=== PATIENT | male | born 1955 | race Caucasian/White ===

== ENCOUNTER 2020-06-16 13:30 | Outpatient (CLI) | payer OTHER, SELFPAY ==
--- NOTE | ~2020-06-16 | XR_ITS ---
EXAMINATION: XR abdomen/kub 1V EXAM DATE: 06/16/2020 13:53 INDICATION: Gross hematuria. TECHNIQUE: Frontal projection(s) of the abdomen for interpretation. There is no prior study for bharati hays. FINDINGS: There is mild to moderate lumbar levoscoliosis. There are gallstones. No calcifications were identified on CT abdomen pelvis obtained at same time. Nonobstructive bowel gas pattern with ex pected amount of colonic stool. Splenic granulomas. Right hip replacement. Moderate lumbar spondylosi s. IMPRESSION: 1. Cholelithiasis. 2. Lumbar levoscoliosis and moderate spondylosis. Reviewed, dictated and finalized at location A.
--- NOTE | ~2020-06-16 | CT_ITS ---
EXAMINATION: CT abdomen pelvis wo/w con EXAM DATE: 06/16/2020 14:21 INDICATION: Gross hematuria. TECHNIQUE: Spiral CT of the abdomen and pelvis was performed without contrast. The patient was then injected with small bolus intravenous Omnipaque 350, followed by delay of approximately 10 minutes to allow collecting system to opacify. A post contrast scan abdomen and pelvis was performed during inj ection of remaining contrast. A total of 130 cc intravenous contrast was administered. The dose-ralph th product (DLP) for this examination was 3084.59 mGy-cm. The exposure was tailored according to pat ient size (auto mA exposure control), and iterative reconstruction (ASIR) was used as additional dose reduction technique. There is no prior study for comparison. FINDINGS: There is no hydronephrosis or nephrolithiasis. Left renal peripelvic cyst. The kidneys en sofía symmetrically. There are no suspicious renal lesions. The calyces and opacified portions of u reters are unremarkable, without filling defects or focal suspicious strictures. The bladder is unre markable. The prostate is unremarkable. There is hepatic steatosis without suspicious focal lesion identified. Spleen, adrenal glands, pancre as are unremarkable. There are gallstones within an otherwise unremarkable gallbladder. No evidence of obstructive biliary disease. There is no retroperitoneal or pelvic lymphadenopathy. There is m oderate scattered arteriosclerotic disease. The appendix is normal. The stomach and small bowel are unremarkable. There is expected amount of c olonic stool. No free intraperitoneal gas. The heart is normal in size. There are no pericardial or pleural effusions. The lung bases are unremarkable. Sternotomy wires. Mild lumbar levoscoliosis. There is right hip arthroplasty. IMPRESSION: 1. No suspicious genitourinary findings. 2. Hepatic steatosis. 3. Cholelithiasis. Reviewed, dictated and finalized at location A.
[2020-06-16 14:02] LABS: Estimated Glomerular Filt Rate > 60
== END 2020-06-16 13:31 | disposition home or self-care (01) ==
LOC: ANHIMG 13:36
PROVIDERS: PCP Internal Medicine Cardiovascular Disease; Visit Provider Urology
DX: R31.0 Gross hematuria (principal); K80.20 Calculus of gallbladder without cholecystitis without obstruction; K76.0 Fatty (change of) liver, not elsewhere classified
CPT/HCPCS: 74018; 74178; Q9967

== ENCOUNTER 2020-06-24 07:46 | Outpatient (CLI) | payer OTHER, MEDICARE, SELFPAY ==
[2020-06-24 08:23] LABS: Anion Gap 9 mmol/L (8-16); Blood Urea Nitrogen 20 mg/dL (9-20); Calcium 9.6 mg/dL (8.4-10.2); Carbon Dioxide 30 mmol/L (22-30); Chloride 103 mmol/L (98-107); Estimated Glomerular Filt Rate > 60; Glucose 90 mg/dL (75-110); Potassium 4.5 mmol/L (3.4-5.0); Sodium 142 mmol/L (137-145)
== END 2020-06-24 07:47 | disposition home or self-care (01) ==
LOC: ANHSURGERY 07:51
PROVIDERS: Anesthesiology; PCP Internal Medicine Cardiovascular Disease; Visit Provider Urology
DX: C67.4 Malignant neoplasm of posterior wall of bladder (principal); Z79.899 Other long term (current) drug therapy
CPT/HCPCS: 36415; 80048; 87077; 87086; 87088; 87186

== ENCOUNTER 2020-06-29 00:43 | Outpatient (CLI) | payer OTHER, MEDICARE, SELFPAY ==
[2020-06-29 16:30] LABS: SARS-CoV-2 RNA PCR Negative
== END 2020-06-29 00:44 | disposition home or self-care (01) ==
LOC: ANHCOVIDDT 00:43
PROVIDERS: PCP Internal Medicine Cardiovascular Disease; Visit Provider Urology
DX: Z01.812 Encounter for preprocedural laboratory examination (principal); Z20.828 Contact with and (suspected) exposure to other viral communicable diseases
CPT/HCPCS: 87635; C9803; U0003

== ENCOUNTER 2020-07-01 00:55 | Day surgery (SDC) | payer OTHER, MEDICARE, SELFPAY ==
[2020-06-22 10:28] VITALS: BMI 46.1
[2020-07-01] VITALS (10 sets, daily range): BP systolic 89–169; BP diastolic 46–77; PULSE 50–65; RESP 11–20; TEMP 36.4; O2SAT 98–100
[2020-07-01] MEDS: LACTATED RINGERS 1,000 ML 30 ML IV CONT ×2 (11:59→15:00)
--- NOTE | 2020-07-01 12:16 | WPDHPUPDATE1 ---
History and Physical Update Update Date/Time: 07/01/20 12:16 History and Physical has been reviewed, including an updated exam of the patient. There are NO changes in the patient's condition. Risks, benefits, and alternatives have been discussed and questions answered. Patient agrees to proceed with procedure.
[2020-07-01] MEDS: levoFLOXacin 500 MG/D5W 100 ML 500 MG/100 ML BAG 100 MG IVPB (12:33)
--- NOTE | 2020-07-01 12:47 | WPDANESEPPF ---
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 Patient Data Age: 65 Gender: M Height: 5 ft 11 in Weight: 151.6 kg Last Vital Signs Temp 97.5 F L 07/01/20 11:25 Pulse 55 L 07/01/20 11:25 Resp 20 07/01/20 11:25 BP 134/70 07/01/20 11:25 Pulse Ox 99 07/01/20 11:25 Allergies Allergy/AdvReac Type Severity Reaction Status Date / Time No Known Allergies Allergy Verified 07/01/20 11:29 Home Medications Medication Instructions Recorded Confirmed Type allopurinol 300 mg PO DAILY 06/22/20 07/01/20 History amiodarone 200 mg PO BID 06/22/20 07/01/20 History apixaban [Eliquis] 5 mg PO BID 06/22/20 07/01/20 History aspirin 81 mg PO DAILY 06/22/20 07/01/20 History carvedilol 3.125 mg PO BID 06/22/20 07/01/20 History duloxetine 30 mg PO QAM 06/22/20 07/01/20 History finasteride 5 mg PO DAILY 06/22/20 07/01/20 History magnesium oxide 400 mg PO BID 06/22/20 07/01/20 History simvastatin 40 mg PO QAM 06/22/20 07/01/20 History tamsulosin 0.4 mg PO DAILY 06/22/20 07/01/20 History valsartan-hydrochlorothiazide 1 tablet PO QAM 06/22/20 07/01/20 History Patient hx anesthesia problems: none Family hx anesthesia problems: none PMFSH Past Medical History Medical History (Updated 07/01/20 @ 12:47 by Campos Castillo MD) Atrial fibrillation Bladder tumor Hyperlipidemia Hypertension AIRAM (obstructive sleep apnea) Surgical History Surgical History (Updated 07/01/20 @ 12:47 by Campos Castillo MD) S/P CABG x 4 Social History Social History Smoking packs per day: 1 Smoking cigarettes per day: 20.0 Years smoked: 23 Smoking pack-years: 23.00 Smoking status: Former smoker Smoking end date: 03/04/95 Alcohol intake: former Alcohol use details: DRANK SOCIALLY Substance use: never Living arrangements: alone Spiritual care concerns: No Anes - Eval Final PreProcedure Day of Procedure 07/01/20 12:47 Patient weight: morbidly obese Heart: irregular rhythm Lungs: clear to auscultation Airway: Mallampati scale class III Neurological: alert and oriented Last oral intake: >/= 8 hours ASA classification: IV Emergent: no Anesthetic plan: proceed Anesthesia type and monitoring: general LMA and standard monitoring Informed Consent: The patient's anesthetic plan and its attendant risks and benefits were discussed with the patient/family/POA. Questions were solicited and answers provided to the satisfaction of the patient/family/POA.
--- NOTE | 2020-07-01 14:04 | PM.PROC ---
Procedure Note - Detailed Date of procedure: 07/01/20 Pre-op diagnosis: CA posterior wall urinary bladder Post-op diagnosis: same Procedure performed: 1. Cystoscopy 2. Transurethrally resection of bladder tumor - 2cm Description of procedure: Informed consent was obtained. Patient taken the operating. He is given preoperative IV antibiotics in the holding area 1hour prior to his surgical intervention. He was induced with anesthesia. He was prepped and draped. A 22 F rigid cystoscope was inserted through the urethra into the bladder. The patient did have bilobar prostatic hyperplasia. Inspection of the bladder revealed a solitary 2cm bladder tumor lateral to the left ureteral orifice with some adjacent inflammatory/tumor tissue. There were no other lesions present. Using the resectoscope we removed the tumor. The base of tumor was biopsied with a flexible biopsy forceps. Cauterization was performed of the resection base. There was good hemostasis. A Maria catheter was inserted. The patient was taken to the PACU in stable condition Anesthesia: GLMA Surgeon: Nicole Luciano MD Drains: No Packing: No Pathology: yes Complications: No immediate complications Condition: stable Disposition: PACU
--- NOTE | 2020-07-01 14:17 | PM.PROC ---
Procedure Note - Detailed Date of procedure: 07/01/20 Pre-op diagnosis: CA posterior wall urinary bladder Post-op diagnosis: same Procedure performed: Postoperative Instillation of mitomycin Description of procedure: The patient is status post transurethral resection of bladder tumor. The patient is in recovery with clear urine. There was no bladder perforation at the time of his resection. We elected to place mitomycin C in the recovery room. The patient's bladder was emptied through the catheter. 40mL of mitomycin-C was instilled into the bladder. The catheter was clamped. The patient will be left with the mitomycin-C in his bladder for 1hour and then be sent home after he voids Anesthesia: none Surgeon: Nicole Luciano MD Drains: No Packing: No Pathology: none sent Complications: No immediate complications Condition: stable Disposition: PACU
== END 2020-07-01 16:45 | disposition home or self-care (01) ==
PROVIDERS: PCP Internal Medicine Cardiovascular Disease; Visit Provider Urology
PROC: 0TBB8ZZ Excision of Bladder, Via Natural or Artificial Opening Endoscopic (ICD-10-PCS; CPT 52234; principal; 2020-07-01 13:00)
DX: C67.4 Malignant neoplasm of posterior wall of bladder (principal); I48.91 Unspecified atrial fibrillation; I10 Essential (primary) hypertension; E78.5 Hyperlipidemia, unspecified; G47.33 Obstructive sleep apnea (adult) (pediatric); Z79.01 Long term (current) use of anticoagulants; Z79.82 Long term (current) use of aspirin; Z95.1 Presence of aortocoronary bypass graft; Z87.891 Personal history of nicotine dependence; E66.01 Morbid (severe) obesity due to excess calories; Z68.42 Body mass index [BMI] 45.0-49.9, adult
CPT/HCPCS: 52234; 51720; 88305; A9270; J1100; J1956; J2370; J2405; J2704; J3010; J7120; J9280

== ENCOUNTER 2020-10-26 08:23 | Outpatient (CLI) | payer OTHER, MEDICARE, SELFPAY ==
--- NOTE | 2020-10-27 15:53 | P.PCNPFT_ITS ---
PFT Interpretation This is a pulmonary function test with spirometry, plethysmography and diffusing capacity. The test was performed and results interpreted in accordance with the 2019 and 2005 ATS/ERS Task Force guidelines respectively using the Dmitry/Laquita reference equations. Findings: Spirometry: The contour of the inspiratory and expiratory flow tracing are no rmal. The FVC is 4.03 L, 87% predicted. The FEV1 is 2.86 L, 90% predicted. The FEV1: FVC ratio 71%. Plethysmography: The total lung capacity is 5.03 L, 74% predicted. The functional residual capacity is 1.57 L, 55% predicted. The residual volume is 1.00 L, 39% predicted. Diffusing capacity: The absolute diffusion capacity is 22.6, 72% predicted. The diffusing capacity corrected for alveolar volume is 4.29, 116% predicted. Impression: There is a mild restrictive ventilatory abnormality with a normal FEV1. The spirometry is normal without evidence of an obstructive abnormality. The absolute diffusing capacity is mildly decreased and normalizes when corrected for alveolar volume. There are no prior studies for comparison
== END 2020-10-26 08:24 | disposition home or self-care (01) ==
PROVIDERS: PCP Family Medicine; Visit Provider Internal Medicine Cardiovascular Disease
DX: Z79.899 Other long term (current) drug therapy (principal); R94.2 Abnormal results of pulmonary function studies
CPT/HCPCS: 94375; 94726; 94729

== ENCOUNTER 2020-12-17 07:55 | Outpatient (CLI) | payer OTHER, MEDICARE, SELFPAY ==
--- NOTE | ~2020-12-17 | XR_ITS ---
EXAMINATION: XR chest 2V DATE: 12/17/2020 08:19 INDICATION: Long-term current use of amiodarone TECHNIQUE: Frontal and lateral views of the chest are obtained COMPARISON: 04/21/2007 FINDINGS: Cardiomegaly is noted. The lungs are free of acute opacities. There is no pleural effusion or pneumothorax. Median sternotomy wires and mediastinal surgical clips are seen, likely from prior c oronary artery bypass grafting. A small cardiac device is implanted in anterior subcutaneous tissues of the left chest wall. There is moderate thoracic spondylosis. IMPRESSION: 1. Cardiomegaly. Reviewed, dictated and finalized at location B. IMPRESSION: 1. Cardiomegaly.
== END 2020-12-17 07:56 | disposition home or self-care (01) ==
LOC: ANHIMG 08:00
PROVIDERS: PCP Family Medicine; Visit Provider Internal Medicine Cardiovascular Disease
DX: Z51.81 Encounter for therapeutic drug level monitoring (principal); Z79.899 Other long term (current) drug therapy; I51.7 Cardiomegaly
CPT/HCPCS: 71046

== ENCOUNTER 2021-04-23 12:14 | Outpatient (CLI) | payer OTHER, MEDICARE, SELFPAY | END 2021-04-23 12:15 | disposition home or self-care (01) | LOC: ANHLAB 12:17 | PROVIDERS: PCP Family Medicine; Visit Provider Internal Medicine Cardiovascular Disease | DX: Z79.899 Other long term (current) drug therapy (principal) | CPT/HCPCS: 36415; 84443 ==

== ENCOUNTER 2021-10-29 10:50 | Outpatient (CLI) | payer MEDICARE, SELFPAY ==
--- NOTE | ~2021-10-29 | XR_ITS ---
EXAMINATION: XR chest 2V 10/29/2021 11:23 INDICATION: Long-term current use of amiodarone PROCEDURE: 2 view chest COMPARISON: Comparison to multiple prior studies sequentially, with oldest reviewed study dated 11/2005. FINDINGS: The lungs are clear. The cardiomediastinal silhouette is within normal limits. There are no pleural effusions. There is no pneumothorax suspected. Status post median sternotomy for CABG. T here is a small implantable cardiac device overlying the left chest. IMPRESSION: 1: NO ACUTE CARDIOPULMONARY DISEASE. Reviewed, dictated and finalized at location B. ATE CLERK
[2021-10-29 12:46] LABS: Alanine Aminotransferase 118 U/L (4-50); Albumin Level 4.2 g/dL (3.5-5.1); Alkaline Phosphatase 174 U/L (38-126); Anion Gap 10 mmol/L (8-16); Aspartate Amino Transferase 97 U/L (17-59); Bilirubin,Total 0.7 mg/dL (0.2-1.3); Blood Urea Nitrogen 20 mg/dL (9-20); Carbon Dioxide 27 mmol/L (22-30); Chloride 104 mmol/L (98-107); Estimated Glomerular Filt Rate > 60; Glucose 94 mg/dL (65-110); Potassium 4.4 mmol/L (3.4-5.0); Sodium 141 mmol/L (137-145)
[2021-10-29 13:09] LABS: Free T4 Free Thyroxine 0.74 ng/mL (0.78-2.19)
== END 2021-10-29 10:51 | disposition home or self-care (01) ==
PROVIDERS: PCP Family Medicine; Visit Provider Internal Medicine Cardiovascular Disease
DX: Z79.899 Other long term (current) drug therapy (principal)
CPT/HCPCS: 36415; 71046; 80053; 84439; 84443

== ENCOUNTER 2021-11-12 09:57 | Outpatient (CLI) | payer MEDICARE, SELFPAY ==
--- NOTE | 2021-11-15 10:46 | WPDPFTINT ---
PFT Procedure Performed PFT Procedure Performed Plethysmography (Lung Vol) Diffusing Cap (DLCO) Flow Vol Loop Spirometry w/o Bronchodil PFT Interpretation Lung volumes were measured with the body plethysmography method. The diminished expiratory reserve volume is related to obesity. The remaining lung volumes are unremarkable. Spirometry showed diminished expiratory flow rates and a diminished FEV1 to FVC ratio of 68% consistent with mild obstructive airway disease. no post bronchodilator study was carried out. Lung diffusion capacity is within the normal range at 81% predicted. The flow volume loop is consistent with mild obstructive airway disease, possibly small airway dysfunction. In comparison to previous study in October of 2020, the FEV1 is now lower by approximately 200 mL whereas forced vital capacity and lung diffusion capacity are essentially unchanged. Total lung capacity is now greater by approximately 1.5 L. Impression: Mild obstructive airway disease. Lung diffusion capacity within the normal range.
== END 2021-11-12 09:58 | disposition home or self-care (01) ==
LOC: ANHPFT 09:59
PROVIDERS: PCP Family Medicine; Visit Provider Internal Medicine Cardiovascular Disease
DX: Z79.899 Other long term (current) drug therapy (principal); J44.9 Chronic obstructive pulmonary disease, unspecified
CPT/HCPCS: 94375; 94726; 94729

== ENCOUNTER 2022-08-04 13:30 | Outpatient (CLI) | payer MEDICARE, SELFPAY ==
[2022-08-04 15:28] LABS: Anion Gap 6 mmol/L (8-16); Blood Urea Nitrogen 25 mg/dL (9-20); Calcium 9.5 mg/dL (8.4-10.2); Carbon Dioxide 30 mmol/L (22-30); Chloride 102 mmol/L (98-107); Estimated Glomerular Filt Rate > 60; Glucose 89 mg/dL (65-110); Potassium 4.8 mmol/L (3.4-5.0); Sodium 138 mmol/L (137-145)
== END 2022-08-04 13:31 | disposition home or self-care (01) ==
PROVIDERS: Anesthesiology; PCP Family Medicine; Visit Provider Urology
DX: D49.4 Neoplasm of unspecified behavior of bladder (principal); Z79.899 Other long term (current) drug therapy; Z01.818 Encounter for other preprocedural examination
CPT/HCPCS: 36415; 80048; 87086; 87088

== ENCOUNTER 2022-08-10 01:35 | Day surgery (SDC) | payer MEDICARE, SELFPAY ==
--- NOTE | 2022-08-04 13:42 | PC.NURSE ---
PRE-OP INSTRUCTIONS, PLEASE READ CAREFULLY Report to the Outpatient Waiting Room, entrance under the green pavilion located off [facility], at time _1130_ on date _08/10/22_. Planned Procedure Time: _1:30 PM_. Time changes happen often and if your time is changed the preop area will call you the afternoon before. - You and your visitor will be asked to self-screen and do not enter if you have any COVID symptoms. - Only one visitor is requested with a max of two and NO children visitors are allowed at this time. - The patient visitor may be requested to leave or wait in car when not with patient due to distancing restrictions. - A mask is optional within the hospital. Patients may have clear liquids (water, carbonated beverages, clear teas, apple juice) until 3 hours prior to surgery (1030 AM) with a maximum of 20 ounces. - No food from midnight until time of surgery Take the following medications with a SIP of water the morning of surgery: _CARVEDILOL, DULOXETINE_ Medications to discontinue - _ASPIRIN AND ELIQUIS PER DR. ORTIZ'S INSTRUCTIONS_, Date to take last dose Please no make-up, nail japanese, hairspray, perfume, deodorant, or body powder the day of surgery. No jewelry (including any body piercings) or valuables the day of surgery, leave them at home. Please take a shower or bath the night before, or the morning of, surgery with an antibacterial soap. Wear comfortable, loose fitting clothing. - Jewelry must be removed prior to entering the operating room. Rings and piercings that are not removed may be cut off. - The hospital will not accept responsibility for valuables. - Please leave all valuables, including medications, at home the day of surgery. If you are going home after surgery, a licensed auto transport driver must drive you home. - NO public transportation without another adult if you receive anesthesia. - We recommend that an adult stay with you for 24 hours following discharge. - We also recommend that you do not drive, make important decision, drink alcoholic beverages, or take any drugs that were not prescribed by your health care provider for at least 24 hours after your discharge time. Follow any additional instructions given to you from your surgeon. If you or anyone in your household have experienced Covid symptoms in the past week, please notify your surgeon or the nurse liaison at the phone number below for possible testing. Instructions given to ____PT and asked if any additional questions and then verbalized understanding. Patient advised to call surgeon office or pre surgery nurse liaison [phone] if any additional questions.
[2022-08-04 13:56] VITALS: BP 120/56; PULSE 58; RESP 20; TEMP 36.5; O2SAT 99; BMI 40.5
[2022-08-10] VITALS (12 sets, daily range): BP systolic 133–158; BP diastolic 57–88; PULSE 58–80; RESP 12–16; TEMP 36.3–37.1; O2SAT 95–100; BMI 40.1
[2022-08-10] MEDS: LACTATED RINGERS 1,000 ML 30 ML IV CONT ×2 (12:15→17:00)
--- NOTE | 2022-08-10 12:34 | WPDANESEPPF ---
Anes - Initial Pre Proc Eval Procedure: Operation Date: 08/10/22 13:30 Proposed Procedures p Transurethral Resection Bladder Tumor - Nicole Luciano MD Date/Time: 08/10/22 12:34 Surgeon: Nicole Luciano MD Pre Op Diagnosis: CA of posterior wall of bladder Patient Data Age: 67 Gender: M Height: 1.8 m Weight: 130.6 kg Last Vital Signs Temp 97.3 F L 08/10/22 11:30 Pulse 58 L 08/10/22 11:30 Resp 16 08/10/22 11:30 BP 152/65 H 08/10/22 11:30 Pulse Ox 100 08/10/22 11:30 O2 Del Method Room Air 08/10/22 11:30 Allergies Allergy/AdvReac Type Severity Reaction Status Date / Time No Known Allergies Allergy Verified 08/10/22 11:38 Home Medications Medication Instructions Recorded Confirmed Type allopurinol 300 mg tablet 300 mg PO DAILY 06/22/20 08/04/22 History apixaban 5 mg tablet (Eliquis) 5 mg PO BID 06/22/20 08/10/22 History aspirin 81 mg tablet 81 mg PO DAILY 06/22/20 08/10/22 History carvedilol 3.125 mg tablet 3.125 mg PO BID 06/22/20 08/10/22 History duloxetine 30 mg capsule,delayed 30 mg PO QAM 06/22/20 08/10/22 History release finasteride 5 mg tablet 5 mg PO DAILY 06/22/20 08/04/22 History magnesium oxide 400 mg (241.3 mg 400 mg PO BID 06/22/20 08/04/22 History magnesium) tablet simvastatin 40 mg tablet 40 mg PO QAM 06/22/20 08/04/22 History tamsulosin 0.4 mg capsule 0.4 mg PO DAILY 06/22/20 08/04/22 History valsartan 320 1 tablet PO QAM 06/22/20 08/04/22 History mg-hydrochlorothiazide 12.5 mg tablet Patient hx anesthesia problems: none Family hx anesthesia problems: none Results Review: All pre-operative results and documents have been reviewed as part of the pre-operative evaluation. [facility] Past Medical History Medical History (Updated 07/01/20 @ 12:47 by Campos Castillo MD) Atrial fibrillation Bladder tumor Hyperlipidemia Hypertension AIRAM (obstructive sleep apnea) Surgical History Surgical History (Updated 07/01/20 @ 12:47 by Campos Castillo MD) S/P CABG x 4 Social History Social History Smoking packs per day: 1 Smoking cigarettes per day: 20.0 Years smoked: 23 Smoking pack-years: 23.00 Smoking status: Former smoker Tobacco type: cigarettes Second hand tobacco smoke exposure: No Smoking end date: 03/04/95 Alcohol intake: current Alcohol use details: STATES DRINKS SOCIALLY - NONE IN PAST 6 MONTHS Substance use: never Substance use type: does not use Living arrangements: alone Spiritual care concerns: No Anes - Eval Final PreProcedure Day of Procedure 08/10/22 12:34 Patient weight: morbidly obese Heart: regular rate and rhythm Lungs: clear to auscultation Airway: Mallampati scale class III Neurological: alert and oriented Last oral intake: >/= 8 hours ASA classification: III Emergent: no Anesthetic plan: proceed Anesthesia type and monitoring: general LMA and standard monitoring Results Review: All pre-operative results and documents have been reviewed as part of the pre-operative evaluation. Informed Consent: The patient's anesthetic plan and its attendant risks and benefits were discussed with the patient/family/POA. Questions were solicited and answers provided to the satisfaction of the patient/family/POA.
--- NOTE | 2022-08-10 12:50 | WPDHPUPDATE1 ---
History and Physical Update Update Date/Time: 08/10/22 12:50 History and Physical has been reviewed, including an updated exam of the patient. There are NO changes in the patient's condition. Risks, benefits, and alternatives have been discussed and questions answered. Patient agrees to proceed with procedure.
--- NOTE | 2022-08-10 13:30 | SUR.PREOP ---
2864- Patient and significant other, Lety aware of delay to procedure start time. Denying needs at this time
[2022-08-10] MEDS: ceFAZolin 3 GM/D5W 100 ML 100 ML IVPB (14:17)
[2022-08-10] MEDS: LIDOCAINE HCL 2% GEL UROJET 10 ML PKG MUCOUS MEM (14:39)
--- NOTE | 2022-08-10 14:54 | W.PM.PROC2 ---
Procedure Note - Detailed Date of Procedure 08/10/22 Pre-op Diagnosis CA of posterior wall of bladder Post-op Diagnosis Same Procedure Performed Transurethral resection of bladder tumor, 1cm Surgeon Nicole Luciano MD Anesthesia General Description of Procedure Informed consent was obtained. Patient given preoperative IV antibiotics. He was induced anesthesia. He was prepped and draped normal sterile fashion in the dorsal lithotomy position. Inserted a 22 F cystoscope through the urethra into the bladder inspection of bladder revealed a 1cm tumor posterior and lateral to the left ureteral orifice. Inspection with the 30degree and 70degree lens did not reveal any other mucosal abnormalities. Using a biopsy forceps, the tumor was grasped at its stalk and removed -this was sent as specimen to pathology. We then performed additional biopsy of the base of resection and this was set separately to pathology. This point electrocautery was used to achieve hemostasis. Hemostasis achieved. Inspection of the left ureteral orifice revealed efflux of clear urine. Inspection of the bladder with low volume revealed no persistent bleeding. We then placed a 18 F Maria catheter patient was taken to PACU in stable condition. Urine Output 200 Pathology Yes Complications No immediate complications Condition Stable Disposition PACU
[2022-08-10] MEDS: SODIUM CHLORIDE 0.9% IV 23.7 ML, GEMCITABINE HCL 1,000 MG BLADDER ×2 (15:07→15:10)
--- NOTE | 2022-08-10 15:18 | W.PM.PROC2 ---
Procedure Note - Detailed Date of Procedure 08/10/22 Pre-op Diagnosis CA of posterior wall of bladder Post-op Diagnosis Same Procedure Performed Installation of mitomycin Surgeon Nicole Luciano MD Anesthesia None Description of Procedure Informed consent was obtained. Patient with Maria catheter in place in the recovery room after removal bladder tumor earlier today. Catheter was from drainage bag and 2000mg of gemcitabine was placed into the bladder. The catheter was clamped. The patient will keep medications in bladder for 1hour and then have void trial. Urine Output 200 Complications No immediate complications Condition Stable Disposition PACU
[2022-08-10] MEDS: oxyCODONE HCL (*CRX) 5 MG TAB IR PO (16:48)
--- NOTE | 2022-08-10 16:48 | SUR.PHASEII ---
DR. ORTIZ CALLED RE: HOME PRESCRIPTIONS; NONE ORDERED. STATES PATIENT CAN TAKE TYLENOL NEEDED.
--- NOTE | 2022-08-10 17:15 | SUR.PHASEII ---
PATIENT STILL SITTING WITH URINAL; ABLE TO HAVE SMALL AMOUNT OF URINE, APPROXIMATELY 10 ML. CONTINUES TO HAVE BURNING, URGENCY BUT NOT ABLE TO VOID. OFFERED TO PATIENT TO WALK IN HALLS AND/OR USE BATHROOM.
== END 2022-08-10 18:23 | disposition home or self-care (01) ==
PROVIDERS: PCP Family Medicine; Visit Provider Urology
PROC: 0TBB8ZZ Excision of Bladder, Via Natural or Artificial Opening Endoscopic (ICD-10-PCS; CPT 52234; principal; 2022-08-10 13:30)
DX: C67.4 Malignant neoplasm of posterior wall of bladder (principal); I48.91 Unspecified atrial fibrillation; I10 Essential (primary) hypertension; E78.5 Hyperlipidemia, unspecified; G47.33 Obstructive sleep apnea (adult) (pediatric); Z95.1 Presence of aortocoronary bypass graft; Z87.891 Personal history of nicotine dependence; E66.01 Morbid (severe) obesity due to excess calories; Z68.41 Body mass index [BMI] 40.0-44.9, adult; Z79.01 Long term (current) use of anticoagulants; Z79.82 Long term (current) use of aspirin
CPT/HCPCS: 52234; 51720; 88305; A9270; J0690; J1100; J2405; J2704; J3010; J7120; J9201

== ENCOUNTER 2024-02-24 21:05 | Emergency (ER) | payer MEDICARE, SELFPAY ==
--- NOTE | ~2024-02-24 | XR_ITS ---
EXAMINATION: XR chest 2V DATE: 02/24/2024 21:27 INDICATION: Chest pain. TECHNIQUE: Frontal and lateral views of the chest were obtained. COMPARISON: Chest 2 views 10/29/2021, CT abdomen and pelvis 06/16/2020 FINDINGS: There is no pneumonia, pleural effusion, or pneumothorax. Cardiomegaly is noted. Median fernanda rnotomy wires and mediastinal surgical clips are seen, likely from prior coronary artery bypass graft ing. There is an electronic implant in left anterior chest wall. IMPRESSION: 1. Cardiomegaly. Reviewed, dictated and finalized at location E. IMPRESSION: 1. Cardiomegaly.
--- NOTE | 2024-02-24 21:07 | ECG_ITS ---
Test Date: 2024-02-24 21:10:48 Measurements Intervals [place] Rate: 54 P: 39 MD: 177 QRS: -90 QRSD: 194 T: 36 QT: 479 QTc: 454 Interpretive Statements SINUS BRADYCARDIA RIGHT BUNDLE BRANCH BLOCK [120+ ms QRS DURATION, UPRIGHT V1, 40+ ms S IN I/aVL/V4/V5/V6] PREVIOUS INFERIOR /LATERAL INFARCTION ABNORMAL ECG No previous ECG available for comparison Electronically Signed On 02-25-2024 08:41:18 CDT by Jorge Rios M.D.
[2024-02-24 21:13] VITALS: BP 153/66; PULSE 54; RESP 15; TEMP 36.1; O2SAT 99
[2024-02-24 22:15] LABS: Basophils Percent Auto 0.2 % (0.2-1.2); Eosinophils Absolute Auto 0.2 K/mm3 (0-0.3); Eosinophils Percent Auto 2.9 % (0-4.4); Hemoglobin 13.7 g/dL (14.0-18.0); Immature Granulocyte Absolute 0.02 K/mm3 (0.00-0.031); Immature Granulocyte Percent A 0.4 % (0-0.5); Immature Platelet Fraction Pct 2.1 % (0.9-11.2); Lymphocytes Absolute Auto 1.09 K/mm3 (0.9-3.2); Lymphocytes Percent Auto 20.7 % (18.3-44.2); Mean Corpuscular HGB Conc 33.4 g/dl (32-36); Mean Corpuscular Hemoglobin 30.4 pg (26-34); Mean Corpuscular Volume 91.1 fl (80-100); Mean Platelet Volume 9.1 fl (7.4-10.4); Monocytes Absolute Auto 0.5 K/mm3 (0.1-0.6); Monocytes Percent Auto 8.9 % (2.6-8.5); Neutrophils Absolute Auto 3.5 K/mm3 (1.3-6.7); Neutrophils Percent Auto 66.9 % (45.5-73.1); Platelet Count Result 108 k/mm3 (150-375); Red Cell Distribution Width 14.6 % (11.5-14.5); White Blood Count 5.3 K/mm3 (4.5-10.0)
[2024-02-24 22:23] LABS: INR 1.1; Prothrombin Time 14.9 Seconds (11.1-14.7)
[2024-02-24] MEDS: ASPIRIN 81 MG CHEWABLE TABLET 324 MG PO (22:23)
[2024-02-24 22:27] LABS: Alanine Aminotransferase 21 U/L (6-50); Alkaline Phosphatase 72 U/L (38-126); Anion Gap 3 mmol/L (4-12); Aspartate Amino Transferase 27 U/L (17-59); Bilirubin,Total 0.7 mg/dL (0.2-1.3); Blood Urea Nitrogen 19 mg/dL (9-20); Carbon Dioxide 29 mmol/L (22-30); Chloride 106 mmol/L (98-107); Estimated CRCL calculation 119 ml/min; Estimated Glomerular Filt Rate > 60; Glucose 94 mg/dL (65-110); Lipase 58 U/L (23-300); Sodium 138 mmol/L (137-145)
[2024-02-24 22:31] VITALS: BP 158/75; PULSE 54; RESP 15; O2SAT 98
[2024-02-24 22:39] LABS: Troponin I < 0.012 ng/mL (0.000-0.034)
[2024-02-24 23:45] VITALS: PULSE 50
[2024-02-24 23:46] VITALS: BP 142/61; PULSE 51; RESP 14; O2SAT 98
--- NOTE | 2024-02-25 00:25 | ECG_ITS ---
Test Date: 2024-02-25 00:25:54 Measurements Intervals Given Rate: 52 P: 31 [place]: 173 QRS: -89 QRSD: 186 T: 20 QT: 473 QTc: 441 Interpretive Statements SINUS BRADYCARDIA MARKED LEFT AXIS DEVIATION [QRS AXIS < -30] RIGHT BUNDLE BRANCH BLOCK [120+ ms QRS DURATION, UPRIGHT V1, 40+ ms S IN I/aVL/V4/V5/V6] PREVIOUS INFERIOR/ LATERAL INFARCTION ABNORMAL ECG Compared to ECG 02/24/2024 21:10:48 NO DIFFERENCE Electronically Signed On 02-26-2024 07:10:20 CDT by Jorge Rios M.D.
[2024-02-25 00:54] LABS: Troponin I < 0.012 ng/mL (0.000-0.034)
[2024-02-25 01:02] VITALS: BP 148/69; PULSE 52; RESP 14; O2SAT 98
--- NOTE | 2024-02-25 01:44 | ED.GENADULT ---
HPI - General Adult General Chief complaint: Chest Pain Stated complaint: cp Time Seen by Provider: 02/24/24 21:34 History of Present Illness HPI narrative: Patient is a 60-year-old gentleman who presents emergency department with chief complaint of left-sided chest pain that radiates to the left shoulder patient reports been ongoing for the last several days he reports for about 10 minutes and then will return patient reports that he has had a bypass approximately 20 years ago and reports that he is followed by cardiology. Patient reports that he decided to come to the emergency department to be evaluated today. Related Data Home Medications Medication Instructions Recorded Confirmed allopurinol 300 mg tablet 300 mg PO DAILY 06/22/20 08/10/22 apixaban 5 mg tablet (Eliquis) 5 mg PO BID 06/22/20 08/10/22 aspirin 81 mg tablet 81 mg PO DAILY 06/22/20 08/10/22 carvedilol 3.125 mg tablet 3.125 mg PO BID 06/22/20 08/10/22 duloxetine 30 mg capsule,delayed 30 mg PO QAM 06/22/20 08/10/22 release finasteride 5 mg tablet 5 mg PO DAILY 06/22/20 08/10/22 magnesium oxide 400 mg (241.3 mg 400 mg PO BID 06/22/20 08/04/22 magnesium) tablet simvastatin 40 mg tablet 40 mg PO QAM 06/22/20 08/10/22 tamsulosin 0.4 mg capsule 0.4 mg PO DAILY 06/22/20 08/04/22 valsartan 320 1 tablet PO QAM 06/22/20 08/04/22 mg-hydrochlorothiazide 12.5 mg tablet Allergies Allergy/AdvReac Type Severity Reaction Status Date / Time No Known Allergies Allergy Verified 08/10/22 11:38 Review of Systems Review of Systems: A 10 system review of systems was completed on the patient and is negative except for what is stated in the HPI. Nursing and ancillary documentation was reviewed. [facility] Past Medical History Medical History Atrial fibrillation Bladder tumor Hyperlipidemia Hypertension AIRAM (obstructive sleep apnea) Surgical History Surgical History S/P CABG x 4 Social History Social History Smoking packs per day: 1 Smoking cigarettes per day: 20.0 Years smoked: 23 Smoking pack-years: 23.00 Smoking status: Former smoker Tobacco type: cigarettes Second hand tobacco smoke exposure: No Smoking end date: 03/04/95 Alcohol intake: current Alcohol use details: STATES DRINKS SOCIALLY - NONE IN PAST 6 MONTHS Substance use: never Substance use type: does not use Living arrangements: alone Spiritual care concerns: No Exam Narrative: GENERAL: Well-appearing, well-nourished, and in no acute distress. HEAD: Normocephalic, atraumatic. EYES: PERRLA and EOMI. ENT: Nares clear, no rhinorrhea or epistaxis. Mucous membranes moist. NECK: Supple. CHEST: Clear to auscultation. No respiratory distress. HEART: Regular rate and rhythm. No murmur heard. Normal peripheral pulses. ABDOMEN: Soft, nontender, nondistended, normal active bowel sounds. EXTREMITIES: Normal range of motion. No edema. SKIN: Warm, dry, no rash. NEURO: No focal deficits. Alert and oriented x3. PSYCH: Normal mood and affect. Course Vital Signs Vital signs: Vital Signs Temperature 36.1 C L 02/24/24 21:13 Pulse Rate 54 L 02/24/24 21:13 Respiratory Rate 15 02/24/24 21:13 Blood Pressure 153/66 H 02/24/24 21:13 Pulse Oximetry 99 02/24/24 21:13 Oxygen Delivery Room Air 02/24/24 21:13 Temperature 36.1 C L 02/24/24 21:13 Pulse Rate 52 L 02/25/24 01:02 Respiratory Rate 14 02/25/24 01:02 Blood Pressure 148/69 H 02/25/24 01:02 Pulse Oximetry 98 02/25/24 01:02 Oxygen Delivery Room Air 02/24/24 23:38 Medical Decision Making MDM Narrative Medical decision making narrative: Differential diagnosis includes ACS, atypical chest pain, noncardiac chest pain, Laboratory studies were obtained on the patient showed a CBC with a wh
== END 2024-02-25 01:59 | disposition home or self-care (01) ==
PROVIDERS: Emergency Provider Emergency Medicine; PCP Family Medicine
DX: R07.9 Chest pain, unspecified (principal); I48.91 Unspecified atrial fibrillation; I10 Essential (primary) hypertension; E78.5 Hyperlipidemia, unspecified; G47.33 Obstructive sleep apnea (adult) (pediatric); Z95.1 Presence of aortocoronary bypass graft; Z87.891 Personal history of nicotine dependence; Z79.899 Other long term (current) drug therapy; Z79.01 Long term (current) use of anticoagulants; R00.1 Bradycardia, unspecified; I45.10 Unspecified right bundle-branch block
CPT/HCPCS: 36415; 71046; 80053; 83690; 84484; 85025; 85055; 85610; 85730; 93005; 99284; A9270